=== PATIENT | female | born 1965 | race Caucasian/White ===

== ENCOUNTER → 2016-07-18 | Outpatient (CLI) | payer OTHER | LOC: WI 07:59 | PROVIDERS: ATTEND Family Medicine | DX: Z12.31 Encounter for screening mammogram for malignant neoplasm of breast (principal) | CPT/HCPCS: 77067; G0202 ==

== ENCOUNTER → 2016-08-19 | Outpatient (CLI) | payer OTHER | LOC: RAD 09:49 | PROVIDERS: ATTEND Family Medicine | DX: R10.2 Pelvic and perineal pain (principal) | CPT/HCPCS: 76830 ==

== ENCOUNTER 2017-04-02 09:22 | Day surgery (SDC) | payer OTHER ==
--- NOTE | 2017-03-30 18:53 | HISTORY AND PHYSICAL E ---
History and Physical NAME: PEARL ROOT : 1965 AGE: 51Y ADMITTED: 04/02/2017 ROOM: CHIEF COMPLAINT: Admit for colon screening, referred . HISTORY OF PRESENT ILLNESS: This is a 51-year-old for colon screening, constipation, abdominal pain. SOCIAL HISTORY: . Does not smoke, does not drink. PAST SURGICAL HISTORY: She does have history of upper scope and colonoscopy 2004. She was involved in an accident. REVIEW OF SYSTEMS: HEAD, EARS, EYES, NOSE AND THROAT: Eye glasses. RESPIRATORY: Negative. CARDIAC: Negative. ENDOCRINE: Diabetes. GASTROINTESTINAL: Colon screening. MUSCULOSKELETAL: Arthritis. FAMILY HISTORY: Father alive, prostate issues. Mom is alive, she has a uterine disorder. PHYSICAL EXAMINATION: GENERAL: Pleasant, alert, oriented. VITAL SIGNS: Blood pressure 130/80, pulse 80, respirations 18, temperature 98. HEAD, EARS, EYES, NOSE AND THROAT: Normal. NECK: Supple. LUNGS: Clear. ABDOMEN: Soft. NEUROLOGIC: Exam negative. MEDICATIONS: She takes Biotin, B12, ibuprofen. CONCLUSION: The patient known to us. She did have upper scope back in the year 2004, where she did have lower esophageal ring, now patient for colon screening. PLAN: Colon exam, admit 04/02. DICTATING PHYSICIAN: RIGO GALLARDO M.D. [id number] PHY#: [id number] ID: [id number] JOB#: [id number] ACCT: [id number] cc:RIGO GALLARDO M.D. >
[~2017-04-02 09:22] MED LIST: EPINEPHRINE INJ 1 MG/10 ML DISP.SYRIN ONE; FLUMAZENIL INJ 0.5 MG/5 ML VIAL ONE; GLUCAGON,HUMAN RECOMB 1 MG INJ ONE; GLYCOPYRROLATE INJ 0.4 MG/2 ML VIAL ONE; NALOXONE HCL INJ/PF 0.4 MG/1 ML SDV ONE; ONDANSETRON HCL INJ/PF 4 MG/2 ML SDV ONE
[2017-04-02] MEDS: MIDAZOLAM 2 MG/2 ML INJ ONE ×3 (10:06→10:14)
[2017-04-02] MEDS: FENTANYL CITRATE INJ/PF 100 MCG/2 ML AMPUL ONE ×2 (10:08→10:20)
[2017-04-02 11:24] LABS: ABSOLUTE EOSINOPHILS # (AUTO) 0.1 10^3/uL (0.0-0.6); ABSOLUTE LYMPHOCYTES (AUTO) 1.7 10^3/uL (0.5-4.7); ABSOLUTE MONOCYTES (AUTO) 0.7 10^3/uL (0.1-1.4); ABSOLUTE NEUT (AUTO) 6.9 10^3/uL (1.7-8.2); BASOPHILS % (AUTO) 0.3 % (0-2); EOSINOPHILS % (AUTO) 0.6 % (0-6); HEMATOCRIT 36.4 % (36.0-47.0); HEMOGLOBIN 12.3 g/dL (12.0-15.5); HGB HCT DIFFERENCE 0.5; LYMPHOCYTES % (AUTO) 17.9 % (13-45); MEAN CORPUSCULAR HGB CONC 33.7 g/dL (32.0-36.0); MEAN CORPUSCULAR VOLUME 86 fl (80-97); RED BLOOD COUNT 4.23 10^6/uL (3.72-5.28); RED CELL DISTRIBUTION WIDTH 13.9 % (11.5-14.0); SEGMENTED NEUTROPHILS % (AUTO) 74.2 % (42-78); WHITE BLOOD COUNT 9.3 10^3/uL (4.0-10.5)
[2017-04-02 11:31] VITALS: BP 117/75
[2017-04-02 11:48] LABS: IRON 70.6 ug/dL (37-170)
[2017-04-02 12:33] LABS: FERRITIN 12.5 ng/mL (11.1-264.0)
--- NOTE | 2017-04-02 13:14 | OPERATIVE REPORT E ---
Operative Report NAME: PEARL ROOT : 1965 AGE: 51Y DATE OF SURGERY: 04/02/2017 ROOM: PREOPERATIVE DIAGNOSIS: Colon screening. POSTOPERATIVE DIAGNOSIS: Sigmoid and descending colon diverticulosis. PROCEDURE: Colonoscopy. SURGEON: RIGO GALLARDO M.D. ANESTHESIA: Versed 3 mg and Fentanyl 100 mcg. TISSUE REMOVED OR ALTERED: None. PROCEDURE: Rectal exam normal. Sigmoid diverticulosis. Descending colon diverticulosis. Moderate amount of stool. Transverse colon normal. Ascending normal. Cecum thoroughly visualized and normal. Scope withdrawn, cecum, ascending, transverse, descending, sigmoid all the way to the rectum. CONCLUSIONS: Sigmoid and descending colon diverticulosis. No polyps, no malignancy. Because of moderate amount of stool, patient is a candidate for follow-up colonoscopy after 2 to 3 years with good prep secondary to diverticulosis, no polyps, no malignancy. Consideration for followup in 2-3 years, follow up with better prep, severe diverticulosis, no diverticulitis. The patient tolerated the procedure well and was discharged to her room in stable condition. DICTATING PHYSICIAN: RIGO GALLARDO M.D. [id number] PHY#: [id number] ID: [id number] JOB#: [id number] ACCT: [id number] cc:RIGO GALLARDO M.D. >
--- NOTE | 2017-04-02 13:16 | DISCHARGE SUMMARY E ---
Discharge Summary NAME: PEARL ROOT : 1965 AGE: 51Y ADMITTED: 04/02/2017 DISCHARGED: 04/02/2017 SUMMARY: The patient is a 51-year-old female who underwent colonoscopy successful to the cecum. No polyps. Severe diverticulosis, sigmoid and descending colon. DISCHARGE PLAN: 1. Soft diet. 2. Resume all meds. 3. Consider follow-up colonoscopy in 2-3 years regarding diverticulosis, inadequate prep, no polyps, no malignancy. FINAL DIAGNOSIS: Diverticulosis. ALLERGIES: 1. MORPHINE. 2. PENICILLIN. 3. ERYTHROMYCIN. DICTATING PHYSICIAN: RIGO GALLARDO M.D. [id number] PHY#: [id number] ID: [id number] JOB#: [id number] ACCT: [id number] cc:[facility]UN[facility] RIGO GALLARDO M.D. >
== END 2017-04-02 11:30 | disposition home or self-care (01) ==
LOC: END 09:22
PROVIDERS: ATTEND Specialist
PROC: 0DJD8ZZ Inspection of Lower Intestinal Tract, Via Natural or Artificial Opening Endoscopic (ICD-10-PCS; principal; 2017-04-02 10:00)
DX: Z12.11 Encounter for screening for malignant neoplasm of colon (principal); K57.30 Diverticulosis of large intestine without perforation or abscess without bleeding; M19.90 Unspecified osteoarthritis, unspecified site; Z88.5 Allergy status to narcotic agent; Z88.0 Allergy status to penicillin; Z88.1 Allergy status to other antibiotic agents; Z79.1 Long term (current) use of non-steroidal anti-inflammatories (NSAID)
CPT/HCPCS: 45378; 36415; 82728; 83540; 85025; J2250; J3010; J1610; J2405; J0171; J2310; J3490

== ENCOUNTER → 2017-08-13 | Outpatient (CLI) | payer OTHER ==
[2017-08-14 21:07] LABS: HSV I DNA Positive (Negative)
[2017-08-15 11:54] LABS: HSV II DNA Negative (Negative)
== END ==
LOC: OD 14:58
PROVIDERS: ATTEND Nurse Practitioner Acute Care
DX: R21 Rash and other nonspecific skin eruption (principal)
CPT/HCPCS: 36415; 87070; 87205; 87529

== ENCOUNTER → 2017-11-18 | Outpatient (CLI) | payer OTHER ==
--- NOTE | 2017-11-18 12:37 | WOMENS IMAGING REPORT ---
EXAM DESCRIPTION: BILAT SCREENING MAMMO W/CAD COMPLETED DATE/TIME: 11/18/2017 9:46 am REASON FOR STUDY: SCREENING MAMMO Z12.31 ENCNTR SCREEN MAMMOGRAM FOR MALIGNANT NEOPLASM OF JASEN COMPARISON: 07/18/2016 and 03/31/2015 TECHNIQUE: Standard craniocaudal and mediolateral oblique views of each breast recorded using [email or web address] l acquisition. LIMITATIONS: None. FINDINGS: Findings present which are benign by mammographic criteria. No suspicious masses, calcifi cations or architectural distortion. Read with the assistance of CAD. .[facility] - R2 [employer] Version 1.3 .[facility] - R2 Cenova Version 1.3 .[facility] - R2 Cenova Version 2.4 .[facility] - R2 Cenova Version 2.4 .[facility] - R2 [employer] Version 9.2 Benign mammographic findings may include one or more of the following: Smooth masses, popcorn/rim/co arse calcifications, asymmetries, post-procedure changes, and lesions with long-standing stability. IMPRESSION: BENIGN MAMMOGRAPHIC FINDINGS. BIRADS 2 BREAST DENSITY: c. The breasts are heterogeneously dense, which may obscure small masses. BIRAD: 2 BENIGN FINDING(S) RECOMMENDATION: ROUTINE SCREENING COMMENT: The patient has been notified of the results by letter per SA requirements. Additional no tification policies are in place for contacting patient with suspicious or incomplete findings. Quality ID #[id number]: The [employer] recommends an annual screening mammogram for women aged 40 years or over. This facility utilizes a reminder system to ensure that all patients receive reminder letters, and/or direct phone calls for appointments. This includes reminders for routine scr eening mammograms, diagnostic mammograms, or other Breast Imaging Interventions when appropriate. Th is patient will be placed in the appropriate reminder system. The [employer] (ACR) has developed recommendations for screening MRI of the breast s in certain patient populations, to be used in conjunction with mammography. Breast MRI surveillanc e may be appropriate for women with more than 20% lifetime risk of developing breast cancer as deter mined by genetic testing, significant family history of the disease, or history of mantle radiation f or Hodgkins Disease. ACR Practice Guidelines 2008. TECHNICAL DOCUMENTATION: FINDING NUMBER: (1) ASSESSMENT: (1) JOB ID: [id number] [employer]- All Rights Reserved Reading location - IP/workstation name: [email or web address]
== END ==
LOC: WI 09:16
PROVIDERS: ATTEND Family Medicine
DX: Z12.31 Encounter for screening mammogram for malignant neoplasm of breast (principal)
CPT/HCPCS: 77067

== ENCOUNTER 2018-04-27 11:54 | Emergency (ER) | payer OTHER ==
[2018-04-27] MEDS ORDERED: NORMAL SALINE 1000 ML 1,000 ML IV ONE (12:10)
[2018-04-27 12:24] LABS: ABSOLUTE BASOPHILS # (AUTO) 0.1 10^3/uL (0.0-0.2); ABSOLUTE EOSINOPHILS # (AUTO) 0.1 10^3/uL (0.0-0.6); ABSOLUTE LYMPHOCYTES (AUTO) 2.5 10^3/uL (0.5-4.7); ABSOLUTE MONOCYTES (AUTO) 0.8 10^3/uL (0.1-1.4); ABSOLUTE NEUT (AUTO) 5.4 10^3/uL (1.7-8.2); BASOPHILS % (AUTO) 0.8 % (0-2); EOSINOPHILS % (AUTO) 1.4 % (0-6); HEMATOCRIT 39.1 % (36.0-47.0); HEMOGLOBIN 13.4 g/dL (12.0-15.5); LYMPHOCYTES % (AUTO) 28.1 % (13-45); MEAN CORPUSCULAR HEMOGLOBIN 30.3 pg (27.0-33.4); MEAN CORPUSCULAR HGB CONC 34.2 g/dL (32.0-36.0); MEAN CORPUSCULAR VOLUME 89 fl (80-97); MONOCYTES % (AUTO) 9.2 % (3-13); PLATELET COUNT 264 10^3/uL (150-450); RED BLOOD COUNT 4.41 10^6/uL (3.72-5.28); RED CELL DISTRIBUTION WIDTH 13.1 % (11.5-14.0); SEGMENTED NEUTROPHILS % (AUTO) 60.5 % (42-78); TOTAL CELLS COUNTED % (AUTO) 100 %
[2018-04-27 12:28] LABS: FIBRINOGEN 322 mg/dL (209-497); INTERNATIONAL RATION (INR) 0.97; PARTIAL THROMBOPLASTIN TIME 27.6 SEC (23.5-35.8); PROTHROMBIN TIME 13.3 SEC (11.4-15.4)
[2018-04-27 12:31] LABS: D-DIMER 1.03 ug/mL (0.00-0.50)
[2018-04-27 12:39] LABS: APPEARANCE,URINE SLIGHTLY-CLOUDY; BILIRUBIN,URINE NEGATIVE (NEGATIVE); COLOR,URINE YELLOW; GLUCOSE, URINE NEGATIVE (NEGATIVE); KETONES,URINE NEGATIVE (NEGATIVE); LEUKOCYTE ESTERASE,URINE NEGATIVE (NEGATIVE); NITRITE,URINE NEGATIVE (NEGATIVE); PROTEIN,URINE NEGATIVE (NEGATIVE); URINE SPECIFIC GRAVITY 1.014; UROBILINOGEN,URINE NEGATIVE mg/dL (<2.0)
[2018-04-27 12:45] LABS: ANION GAP 10 (5-19); BLOOD UREA NITROGEN 22 mg/dL (7-20); CALCIUM 9.3 mg/dL (8.4-10.2); CARBON DIOXIDE 27 mmol/L (22-30); CHLORIDE 101 mmol/L (98-107); CREATINE KINASE 251 U/L (30-135); GLUCOSE 81 mg/dL (75-110); SODIUM 137.5 mmol/L (137-145)
[2018-04-27] MEDS ORDERED: KETOROLAC TROMETHAMINE INJ/PF 30 MG/1 ML SDV IV ONE (13:57)
[2018-04-27] MEDS ORDERED: ACETAMINOPHEN 325 MG TABLET PO ONE (13:57)
[2018-04-27 15:39] VITALS: BP 143/97
[2018-04-27] MEDS ORDERED: DIPH/PERTUSS(ACELL)/TETANUS VAC/PF 0.5 ML SYR (>=10YO) IM ONE (15:59)
--- NOTE | 2018-04-27 16:03 | ER Document Report ---
ED General - General Chief Complaint: Snake Bite Stated Complaint: POSSIBLE SNAKE BITE Time Seen by Provider: 04/27/18 12:07 TRAVEL OUTSIDE OF THE [place] IN LAST 30 DAYS: No - HPI Patient complains to provider of: Possible snakebite Notes: Patient coming in for possible snakebite. Patient states that she was working in brush stuck her hand to some twigs and felt instant pain remove her hand showing 2 sellers on the index finger of the left hand from side just below the PIP. Patient states she was not able to see any snakes or identify any other objects that could make the sellers patient states the clear fluid was coming out otherwise patient states no medical issues denies any fevers chills nausea vomiting diarrhea. Patient is resting comfortably upon my evaluation states that the incident occurred approximately 1 hour prior to arrival here in the ER. - Related Data Allergies/Adverse Reactions: erythromycin base [Erythromycin Base] Allergy (Severe, Verified 04/27/18 11:55) morphine [Morphine] Allergy (Severe, Verified 04/27/18 11:55) Penicillins Allergy (Severe, Verified 04/27/18 11:55) Past Medical History - Social History Smoking Status: Never Smoker Chew tobacco use (# tins/day): No Frequency of alcohol use: None Drug Abuse: None Family History: Reviewed & Not Pertinent Patient has suicidal ideation: No Patient has homicidal ideation: No - Past Medical History Cardiac Medical History: Denies: Hx Coronary Artery Disease, Hx Heart Attack, Hx Hypertension Pulmonary Medical History: Reports: Hx Pneumonia - YRS AGO 2003 Denies: Hx Asthma, Hx Bronchitis, Hx COPD Neurological Medical History: Denies: Hx Cerebrovascular Accident, Hx Seizures Endocrine Medical History: Reports: Hx Diabetes Mellitus Type 2 - no longer taking medications Renal/ Medical History: Denies: Hx Peritoneal Dialysis Musculoskeletal Medical History: Denies Hx Arthritis Past Surgical History: Reports: Hx Abdominal Surgery - 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 Denies: Hx Hysterectomy, Hx Pacemaker - Immunizations Hx Diphtheria, Pertussis, Tetanus Vaccination: No Hx Pneumococcal Vaccination: 04/20/08 Review of Systems - Review of Systems Constitutional: No symptoms reported EENT: No symptoms reported Cardiovascular: No symptoms reported Respiratory: No symptoms reported Gastrointestinal: No symptoms reported Genitourinary: No symptoms reported Female Genitourinary: No symptoms reported Musculoskeletal: No symptoms reported Skin: Other - Possible snakebite Hematologic/Lymphatic: No symptoms reported Neurological/Psychological: No symptoms reported -: Yes All other systems reviewed and negative Physical Exam - Vital signs Vitals: Temp Pulse Resp BP Pulse Ox 98.5 F 91 16 149/83 H 98 04/27/18 12:02 04/27/18 12:02 04/27/18 12:02 04/27/18 12:02 04/27/18 12:02 Interpretation: Normal - General General appearance: Appears well, Alert - HEENT Head: Normocephalic, Atraumatic Eyes: Normal Pupils: PERRL - Respiratory Respiratory status: No respiratory distress Chest status: Nontender Breath sounds: Normal Chest palpation: Normal - Cardiovascular Rhythm: Regular Heart sounds: Normal auscultation Murmur: No - Abdominal Inspection: Normal Distension: No distension Bowel sounds: Normal Tenderness: Nontender Organomegaly: No organomegaly - Back Back: Normal, Nontender - Extremities General upper extremity: Nontender, Normal color, Normal ROM, Normal temperatu re. No: Normal inspection - Patient with 2 small abrasions underneath the PIP joint of the index finger left hand on the thumb side there is no redness no swelling no signs of foreign body General lower extremity: Normal inspection, Nontender, Normal color, Normal ROM, Normal temperature, Normal weight bearing. No: Jerilyn's sign - Neurological Neuro grossly intact: Yes Cognition: Normal Orientation: AAOx4 Henderson Coma Scale Eye Opening: Spontaneous Henderson Coma Scale Verbal: Oriented Paramjit Coma Scale Motor: Obeys Commands Henderson Coma Scale Total: 15 Speech: Normal Motor strength normal: LUE, RUE, LLE, RLE Sensory: Normal - Psychological Associated symptoms: Normal affect, Normal mood - Skin Skin Temperature: Warm Skin Moisture: Dry Skin Color: Normal Course - Re-evaluation Re-evalutation: 04/27/18 18:09 Patient had laboratory studies performed prior to my evaluation. 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 Patient also has elevation in her d-dimer again no signs of PE no signs of DVT do believe this is anomalous laboratory finding did discuss the patient's case with the Poison Control Center stated that they would not recommend any further laboratory testing recommended an observation period of approximately 4 hours after the bite at that time if the patient remained asymptomatic no swelling no redness that she can be discharged home and that the y would follow-up with her as an outpatient. Patient was monitored no change in her wound status patient unclear of her tetanus status therefore that was given upon discharge. Patient recommended to return to work in 48 hours. - Vital Signs Vital signs: Temp Pulse Resp BP Pulse Ox 98.2 F 91 14 143/97 H 100 04/27/18 14:59 04/27/18 12:02 04/27/18 15:36 04/27/18 15:36 04/27/18 15:36 - Laboratory Result Diagrams: 04/27/18 12:10 04/27/18 12:10 Laboratory results interpreted by me: 04/27/18 04/27/18 12:10 12:10 D-Dimer 1.03 H BUN 22 H Creatine Kinase 251 H Discharge - Discharge Clinical Impression: Injury of left index finger, possible snake bite Condition: Good Disposition: HOME, SELF-CARE Instructions: Snakebites ([facility]), Tetanus Immunization Given ([facility]) Additional Instructions: Your evaluation does not reveal any significant pathology. After monitoring there is no swelling there is no redness consistent with a large envenomation from a possible snake. I have discussed your case with poison control here in [place] recommend this time that you are safe to be discharged home the poison control nurse will more likely follow-up with you later tonight to check with your symptoms. I would recommend resting for the next 24 hours. Return to the ER if any symptoms worsen. Prescriptions: Ibuprofen [Motrin 600 mg Tablet] 600 mg PO Q8HP PRN #21 tablet PRN Reason: Forms: Return to Work Referrals: YOSEF HOWE DO [Primary Care Provider] - Follow up as needed
== END 2018-04-27 16:13 | disposition home or self-care (01) ==
LOC: ER 11:54
DX: S61.251A Open bite of left index finger without damage to nail, initial encounter (principal); W59.11XA Bitten by nonvenomous snake, initial encounter; E11.9 Type 2 diabetes mellitus without complications
CPT/HCPCS: 99283; 96372; 96360; 96361; 90471; 36415; 82550; 85025; 85384; 85362; 85610; 85730; 83874; 80048; 81001; 85379; 90715; J1885; J7030

== ENCOUNTER → 2018-06-15 | Outpatient (CLI) | payer OTHER ==
[2018-06-15 11:18] LABS: CHLAM PCR NOT DETECTED (NOT DETECT); GON PCR NOT DETECTED (NOT DETECT)
== END ==
LOC: OD 08:25
PROVIDERS: ATTEND Nurse Practitioner Family
DX: N89.8 Other specified noninflammatory disorders of vagina (principal)
CPT/HCPCS: 87491; 87591

== ENCOUNTER → 2018-09-10 | Outpatient (CLI) | payer OTHER ==
--- NOTE | 2018-09-10 13:42 | RADIOLOGY REPORT (SQ) ---
EXAM DESCRIPTION: NM HIDA SCAN WITH CCK COMPLETED DATE/TIME: 09/10/2018 1:31 pm REASON FOR STUDY: RUQ PAIN R10.11 RIGHT UPPER QUADRANT PAIN COMPARISON: None. RADIONUCLIDE AND DOSE: DOSAGE RADIONUCLIDE: 4.9 millicuries Tc99m Mebrofenin. DOSAGE CCK: 1.7 micrograms. DOSAGE MORPHINE: Not required. The route of agent administration: Intravenous TECHNIQUE: Serial imaging right upper quadrant up to 60 minutes following injection of radionuclide. CCK injected after gallbladder visualized. LIMITATIONS: None. FINDINGS: LIVER: Normal visualization. Activity in the liver clears by 60 minutes. INTRAHEPATIC BILE DUCTS: Normal visualization. COMMON BILE DUCT: Normal visualization. GALLBLADDER: Normal visualization. Calculated ejection fraction of 22%. Normal range is greater th an 35%. PHYSICAL RESPONSE: Patients presenting complaint was not reproduced. OTHER: No other significant finding. IMPRESSION: No scintigraphic evidence of cystic duct or common duct obstruction. Although the gallbladder ejection fraction is mildly depressed, the IV cholecystokinin failed to repr oduce the patient's symptoms TECHNICAL DOCUMENTATION: JOB ID: [id number] [employer]- All Rights Reserved Reading location - IP/workstation name: [email or web address]
== END ==
LOC: RAD 11:27
PROVIDERS: ATTEND Family Medicine
DX: R10.11 Right upper quadrant pain (principal)
CPT/HCPCS: 78227; J2805; A9537; Q9969

== ENCOUNTER → 2018-12-08 | Outpatient (CLI) | payer OTHER ==
--- NOTE | 2018-12-08 12:38 | WOMENS IMAGING REPORT ---
EXAM DESCRIPTION: BILAT SCREENING MAMMO W/CAD COMPLETED DATE/TIME: 12/08/2018 10:23 am REASON FOR STUDY: Z12.31 SCREENING MAMMO Z12.31 ENCNTR SCREEN MAMMOGRAM FOR MALIGNANT NEOPLASM OF B RE COMPARISON: 11/18/2017, 07/18/2016 and 11/10/2008 EXAM PARAMETERS: Standard craniocaudal and mediolateral oblique views of each breast recorded using digital acquisition. Read with the assistance of CAD. .[facility] - [employer] Version 9.2 LIMITATIONS: None. FINDINGS: Findings present which are benign by mammographic criteria. No suspicious masses, calcifi cations or architectural distortion. Benign mammographic findings may include one or more of the following: Smooth masses, popcorn/rim/co arse calcifications, asymmetries, post-procedure changes, and lesions with long-standing stability. IMPRESSION: BENIGN MAMMOGRAPHIC FINDINGS. BIRADS 2 BREAST DENSITY: b. There are scattered areas of fibroglandular density. BIRAD: ASSESSMENT: 2 BENIGN FINDING(S) RECOMMENDATION: ROUTINE SCREENING COMMENT: The patient has been notified of the results by letter per SA requirements. Additional no tification policies are in place for contacting patient with suspicious or incomplete findings. Quality ID #225: The [employer] [employer] recommends an annual screening mammogram for women aged 40 years or over. This facility utilizes a reminder system to ensure that all patients receive reminder letters, and/or direct phone calls for appointments. This includes reminders for routine scr eening mammograms, diagnostic mammograms, or other Breast Imaging Interventions when appropriate. Th is patient will be placed in the appropriate reminder system. TECHNICAL DOCUMENTATION: FINDING NUMBER: (1) ASSESSMENT: (1) JOB ID: [id number] [employer]- All Rights Reserved Reading location - IP/workstation name: [email or web address]
== END ==
LOC: WI 09:45
PROVIDERS: ATTEND Family Medicine
DX: Z12.31 Encounter for screening mammogram for malignant neoplasm of breast (principal)
CPT/HCPCS: 77067

== ENCOUNTER → 2019-07-11 | Outpatient (CLI) | payer OTHER ==
--- NOTE | 2019-07-11 11:52 | RADIOLOGY REPORT (SQ) ---
EXAM DESCRIPTION: OS CALCIS/HEEL RIGHT COMPLETED DATE/TIME: 07/11/2019 11:44 am REASON FOR STUDY: PAIN OF RT HEEL M79.671 PAIN IN RIGHT FOOT COMPARISON: None. NUMBER OF VIEWS: Two views. TECHNIQUE: Plantar and lateral images acquired of the right calcaneous. LIMITATIONS: None. FINDINGS: MINERALIZATION: Normal. BONES: No acute fracture or dislocation. No worrisome bone lesions. No significant osteophytes. JOINTS: No erosions. No tammy-articular osteopenia. No chondrocalcinosis. SOFT TISSUES: No swelling. No calcifications. OTHER: No other significant finding. IMPRESSION: NEGATIVE STUDY OF THE RIGHT CALCANEOUS. NO ACUTE POST-TRAUMATIC CHANGES. NO EXPLANATION FOR PAIN. TECHNICAL DOCUMENTATION: JOB ID: [id number] 2010 [employer]- All Rights Reserved Reading location - IP/workstation name: [email or web address]
== END ==
LOC: OD 11:32
PROVIDERS: ATTEND Nurse Practitioner Family
DX: M79.671 Pain in right foot (principal)

== ENCOUNTER → 2019-07-15 | Outpatient (CLI) | payer OTHER ==
--- NOTE | 2019-07-15 10:41 | WOMENS IMAGING REPORT ---
EXAM DESCRIPTION: TRANSVAGINAL ULTRASOUND COMPLETED DATE/TIME: 07/15/2019 10:20 am REASON FOR STUDY: R10.2 PELVIC AND PERINEAL PAIN R10.2 PELVIC AND PERINEAL PAIN COMPARISON: 08/19/2016 TECHNIQUE: Dynamic and static grayscale images acquired of the pelvis via transvaginal approach and recorded on PACS. Additional selected color Doppler and spectral images recorded. LIMITATIONS: None. FINDINGS: UTERUS: Contour normal. No mass. ENDOMETRIAL STRIPE: No focal or generalized thickening. No masses. CERVIX: No would be in cyst is noted. RIGHT OVARY AND DOPPLER: Normal size. No worrisome masses. Normal arterial vascular flow without evid ence for torsion. LEFT OVARY AND DOPPLER: Normal size. No worrisome masses. Normal arterial vascular flow without evide nce for torsion. FREE FLUID: None noted. OTHER: No other significant finding. MEASUREMENTS: UTERUS: 8.4 x 4.3 x 5.2 cm. ENDOMETRIAL STRIPE: 6 mm. RIGHT OVARY: 2.1 x 1.8 x 1.6 cm. LEFT OVARY: 2.1 x 1.8 x 2.4 cm. IMPRESSION: Nabothian cyst. No other significant findings. TECHNICAL DOCUMENTATION: JOB ID: [id number] 2010 [employer]- All Rights Reserved Rev Reading location - IP/workstation name: [email or web address]
== END ==
LOC: RAD 09:40
PROVIDERS: ATTEND Nurse Practitioner Family
DX: N88.8 Other specified noninflammatory disorders of cervix uteri (principal); R10.2 Pelvic and perineal pain
CPT/HCPCS: 76830